=== PATIENT | female | born 1995 | race Caucasian/White ===

== ENCOUNTER 2016-11-04 12:23 | Emergency (ER) | payer MEDICAID, OTHER ==
[2016-11-04 12:43] VITALS: BP 131/64
--- NOTE | 2016-11-04 13:39 | UC ---
Upper Extremity HPI - HPI Summary HPI Summary: About 8 days ago developed large red oval on L upper ventral arm. Very itchy, also swollen and painful. Also noticed red itchy swollen area around 3 "bites" on R elbow with red streaking up the arm within a day or so. Saw PCP and was placed on bactrim for a week. Now pt has finished rx but symptoms persist, up scratching all night. No known stings or tick bites. Her PCP suggested she come here for lyme testing. - History of Current Complaint Chief Complaint: UCSkin Stated Complaint: SKIN ISSUE Time Seen by Provider: 11/04/16 12:58 Hx Obtained From: Patient Hx Last Menstrual Period: 10/05/16 ?: No Onset/Duration: Gradual Onset, Lasting Days Severity Initially: Moderate Severity Currently: Moderate Location Of Pain: Is Discrete @ Character: Dull Aggravating Factor(s): Nothing Alleviating Factor(s): Nothing Associated Signs And Symptoms: Positive: Swelling, Redness - Allergies/Home Medications Allergies/Adverse Reactions: Allergies Allergy/AdvReac Type Severity Reaction Status Date / Time Amoxicillin Allergy Unknown Verified 11/04/16 12:44 Reaction Details Azithromycin Allergy Unknown Verified 11/04/16 12:44 Reaction Details Bee Venom Allergy Swelling Verified 11/04/16 12:44 Penicillins [PCN] Allergy Unknown Verified 11/04/16 12:44 Reaction Details PMH/Surg Hx/FS Hx/Imm Hx Previously Healthy: Yes - Surgical History Surgical History: Yes Surgery Procedure, Year, and Place: 2013 CHOLECYSTECTOMY - Family History Known Family History: Positive: Other - no hx ulcers, colon cancer (distant realatives) - Social History Alcohol Use: Rare Substance Use Type: None Substance Use Comment - Amount & Last Used: HAS NOT NEEDED PERCOCET IN 3 DAYS Smoking Status (MU): Current Some Day Smoker Type: Cigarettes, Smokeless Tobacco Amount Used/How Often: 1 pack per week Length of Time of Smoking/Using Tobacco: 7 years Household Exposure Type: Cigarettes Cessation Counseling: Counseled 3+Min - 10 Min Review of Systems Constitutional: Negative Skin: Rash Eyes: Negative ENT: Negative Respiratory: Negative Cardiovascular: Negative Gastrointestinal: Negative Genitourinary: Negative Motor: Negative Neurovascular: Negative Musculoskeletal: Negative Neurological: Negative Psychological: Negative All Other Systems Reviewed And Are Negative: Yes Physical Exam Triage Information Reviewed: Yes Appearance: Well-Appearing, No Pain Distress, Obese Vital Signs: Initial Vital Signs Temp 98.8 F 11/04/16 12:39 Pulse 85 11/04/16 12:39 Resp 16 11/04/16 12:39 BP 131/64 11/04/16 12:39 Pulse Ox 100 11/04/16 12:39 Vital Signs Reviewed: Yes Eye Exam: Normal, Other - PERRL Eyes: Positive: Conjunctiva Clear ENT Exam: Normal ENT: Positive: Normal ENT inspection, Hearing grossly normal, Pharynx normal, TMs normal Dental Exam: Normal Neck exam: Normal Neck: Positive: Supple, Nontender, No Lymphadenopathy Respiratory Exam: Normal Respiratory: Positive: Chest non-tender, Lungs clear, Normal breath sounds, No respiratory distress, No accessory muscle use Cardiovascular Exam: Normal Cardiovascular: Positive: RRR, No Murmur Musculoskeletal Exam: Normal Musculoskeletal: Positive: Strength Intact, ROM Intact Neurological Exam: Normal Neurological: Positive: Alert Psychological Exam: Normal Skin Exam: Other - large swollen, hot itchy spots on bilat arms. R arm has streaking up the upper arm Upper Extremity Course/Dx - Differential Dx/Diagnosis Provider Diagnoses: large local reaction BUE. possible cellulitis RUE Discharge - Discharge Plan Condition: Stable Disposition: HOME Prescriptions: Cephalexin CAP* [Keflex 500 CAP*] 500 mg PO TID #21 cap DOXYcycline CAP(*) [DOXYcycline 100MG CAP(*)] 100 mg PO BID #14 cap predniSONE TAB* [Deltasone TAB*] 50 mg PO DAILY #5 tab Patient Education Materials: Insect Bite or Sting (ED), Cellulitis (ED) Referrals: Non Staff,Doctor [Primary Care Provider] - 3 Days Additional Instructions: As we discussed, I do not think your symptoms are typical of lyme, though I am testing you for this in case you have an odd reaction to the bacteria. The itchiness and appearance of your spots is most consistent with large reactions to insect bites or stings. The steroids may be all you need. However, with the streaking on your right arm, I am covering you with antibiotics to make sure you do not have a worsening infection. Please see your primary care provider later this week for a recheck before the weekend.
--- NOTE | 2016-11-05 19:54 | ED ---
Progress - Progress Note Progress Note: CALL PATIENT HIV 1 AND 2 NON REACTIVE. Course/Dx - Diagnoses Provider Diagnoses: Rash
== END 2016-11-04 13:50 | disposition home or self-care (01) ==
LOC: UCEAST 12:23
DX: L98.9 Disorder of the skin and subcutaneous tissue, unspecified (principal); Z11.4 Encounter for screening for human immunodeficiency virus [HIV]; Z72.0 Tobacco use
CPT/HCPCS: 36415; 86618; 86703; 99211; G0463

== ENCOUNTER 2016-12-27 14:22 | Emergency (ER) | payer MEDICAID ==
[2016-12-27] MEDS ORDERED: Ketorolac INJ* 60 MG/2 ML VIAL IM ONE (17:06)
[2016-12-27] MEDS ORDERED: Sulfamethox/Trimethoprim DS 800/160* TAB PO ONE (17:06)
[2016-12-27] MEDS ORDERED: traMADol TAB* 50 MG PO ONE (18:19)
[2016-12-27 18:42] VITALS: BP 120/69
--- NOTE | 2016-12-28 17:30 | ED ---
Fabiana Dickerson Edward, scribed for Jaden Johns MD on 12/27/16 at 1803 . Complex/Multi-Sys Presentation - HPI Summary HPI Summary: 21 y/o female presents to the ED c/o severe pain in her R side lower jaw for one week. The pain is not alleviated with anything and aggravated by touch. The pain radiates to behind the R ear and down the neck. The pt was dx with a dental abscess and given clindamycin but the pt is allergic to clindamycin. Associated sx: diaphoretic, chills. - History Of Current Complaint Chief Complaint: EDDentalPain Time Seen by Provider: 12/27/16 16:47 Hx Obtained From: Patient Onset/Duration: Lasting Days - 1 week Timing: Constant Severity Currently: Severe Location: Pain At: - R jaw Associated Signs And Symptoms: Positive: Diaphoresis, Other - dental pain, chills - Allergies/Home Medications Allergies/Adverse Reactions: Allergies Allergy/AdvReac Type Severity Reaction Status Date / Time Acetaminophen [From Tylenol] Allergy Severe Headache Verified 12/27/16 14:42 Hydrocodone Allergy Severe Hives Verified 12/27/16 14:42 Bee Venom Allergy Intermediate Swelling Verified 12/27/16 14:42 Clindamycin Allergy Intermediate Hives Verified 12/27/16 14:42 Amoxicillin Allergy Unknown Unknown Verified 12/27/16 14:42 Reaction Details Azithromycin Allergy Unknown Unknown Verified 12/27/16 14:42 Reaction Details Penicillins [PCN] Allergy Unknown Unknown Verified 12/27/16 14:42 Reaction Details PMH/Surg Hx/FS Hx/Imm Hx Previously Healthy: No Endocrine/Hematology History: Denies: Hx Diabetes, Hx Thyroid Disease Cardiovascular History: Denies: Hx Congestive Heart Failure, Hx Hypertension Respiratory History: Denies: Hx Asthma, Hx Chronic Obstructive Pulmonary Disease (COPD) GI History: Denies: Hx Ulcer History: Denies: Hx Dialysis, Hx Renal Disease - Surgical History Surgery Procedure, Year, and Place: 2013 CHOLECYSTECTOMY - Immunization History Date of Tetanus Vaccine: unknown Date of Influenza Vaccine: unknown Infectious Disease History: No Infectious Disease History: Denies: Hx Hepatitis, Hx Human Immunodeficiency Virus (HIV), History Other Infectious Disease, Traveled Outside the [place] in Last 30 Days - Family History Known Family History: Positive: Other - no hx ulcers, colon cancer (distant realatives) - Social History Alcohol Use: None Substance Use Type: Reports: None Substance Use Comment - Amount & Last Used: HAS NOT NEEDED PERCOCET IN 3 DAYS Smoking Status (MU): Light Every Day Tobacco Smoker Type: Cigarettes, Smokeless Tobacco Amount Used/How Often: 1 pack per week Length of Time of Smoking/Using Tobacco: 7 years Review of Systems Positive: Chills, Skin Diaphoresis Eyes: Negative Positive: Dental Pain Cardiovascular: Negative Respiratory: Negative Gastrointestinal: Negative Genitourinary: Negative Musculoskeletal: Negative Skin: Negative Neurological: Negative Psychological: Normal All Other Systems Reviewed And Are Negative: Yes Physical Exam - Summary Physical Exam Summary: VITAL SIGNS: Reviewed. GENERAL: ~Patient is a well-developed and nourished female who is lying comfortable in the stretcher. ~Patient is not in any acute respiratory distress. HEAD AND FACE: No signs of trauma. ~No ecchymosis, hematomas or skull depressions. No sinus tenderness. EYES: PERRLA, EOMI x 2, No injected conjunctiva, no nystagmus. EARS: Hearing grossly intact. Ear canals and tympanic membranes are within normal limits. MOUTH: Oropharynx within normal limits. Dental fracture in tooth no. 31, cavity in tooth no. 3 no signs of abscess. No swelling of the tongue or lips, and no trismus NECK: Supple, trachea is midline, no adenopathy, no JVD, no carotid bruit, no c- spine tenderness, neck with full ROM. CHEST: Symmetric, no tenderness at palpation LUNGS: Clear to auscultation bilaterally. No wheezing or crackles. CVS: Regular rate and rhythm, S1 and S2 present, no murmurs or gallops appreciated. ABDOMEN: Soft, non-tender. No signs of distention. No rebound no guarding, and no masses palpated. Bowel sounds are normal. EXTREMITIES: FROM in all major joints, no edema, no cyanosis or clubbing. NEURO: Alert and oriented x 3. No acute neurological deficits. Speech is normal and follows commands. SKIN: Dry and warm Triage Information Reviewed: Yes Vital Signs On Initial Exam: Initial Vitals Temp Pulse Resp BP Pulse Ox 98.7 F 83 16 136/76 99 12/27/16 14:33 12/27/16 14:33 12/27/16 14:33 12/27/16 14:33 12/27/16 14:33 Vital Signs Reviewed: Yes Diagnostics - Vital Signs Vital Signs Temp Pulse Resp BP Pulse Ox 12/27/16 14:33 98.7 F 83 16 136/76 99 - Laboratory Lab Statement: Any lab studies that have been ordered have been reviewed, and results considered in the medical decision making process. Complex Multi-Symp Course/Dx Assessment/Plan: 21 y/o female presents to the ED c/o severe pain in her R side lower jaw for one week. The pain is not alleviated with anything and aggravated by touch. The pain radiates to behind the R ear and down the neck. The pt was dx with a dental abscess and given clindamycin but the pt is allergic to clindamycin. Associated sx: diaphoretic, chills. In the ED course I did not notice any abscesses. The pt has a dental fracture in tooth no. 31, cavity in 3 but no signs of abscess. Pt was placed on clindamycin but is allergic. Therefore the pt will be given Bactrim since she is also allergic to penicillin. She will also be given naproxen and ultram for pain. The pt is highly recommended to f/u with a dentist. The pt is hemodynamically stable and A &Ox3. The patient has no swelling of the tongue or lips and no trismus. - Diagnoses Provider Diagnoses: Dental cavity, Pain, dental Discharge - Discharge Plan Condition: Stable Disposition: HOME Prescriptions: Naproxen TAB* [Naprosyn 250 mg TAB*] 500 mg PO Q8H PRN #20 tab PRN Reason: Pain Sulfamethox/Trimethoprim DS* [Bactrim DS 800/160 TAB*] 1 tab PO BID #20 tab traMADol TAB* [Ultram*] 25 mg PO Q6HR PRN #10 tab MDD 4 PRN Reason: Pain Patient Education Materials: Cavity Preventive (For the teeth or gums) Referrals: Oziel Bo MD [Primary Care Provider] - Additional Instructions: HIGHLY RECOMMEND YOU F/U WITH A DENTIST [facility] The documentation as recorded by the Fabiana cespedes Edward accurately reflects the service I personally performed and the decisions made by me, Jaden Johns MD.
== END 2016-12-27 18:41 | disposition home or self-care (01) ==
LOC: ED 14:22
DX: K02.9 Dental caries, unspecified (principal); K08.89 Other specified disorders of teeth and supporting structures
CPT/HCPCS: 96372; 99282; A9270-GY; J1885

== ENCOUNTER 2017-06-20 00:34 | Emergency (ER) | payer MEDICAID, OTHER ==
--- NOTE | 2017-06-20 02:38 | ED ---
Abdominal Pain/Female - HPI Summary HPI Summary: Patient here with right lower pain today. This is associated with hematuria, dysuria and urinary frequency. She denies fever, chills, nausea, vomiting, diarrhea, chest pain and is moving her bowels well. No vaginal discharge, irritation - last menstrual period first week of June. Patient denies risk of . NOTE: pt also reports she developed Rt arm pain and "heaviness" on the ambulance ride over. Denies numbness, tingling. Pain with lifting arm. No known injury to UE or neck. She also has Rt LE pain and weakness but this is chronic. Admits to h/o "passing out" a few months ago - has been worked up by PCP (ie. holter monitor, etc). No known cause. She has not had a syncopal episode in weeks. 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 Hx Last Menstrual Period: 10/05/16 Pain Intensity: 6 <Alesha Sánchez - Last Filed: 06/20/17 03:09> <Lm Grant - Last Filed: 06/20/17 04:44> - History of Current Complaint Chief Complaint: EDUrogenitalProblems Stated Complaint: BLOODY URINE Time Seen by Provider: 06/20/17 01:40 Allergies/Adverse Reactions: Allergies Allergy/AdvReac Type Severity Reaction Status Date / Time MS Hydrocodone [Hydrocodone] Allergy Severe Hives Verified 12/27/16 14:42 MS Bee Venom [Bee Venom] Allergy Intermediate Swelling Verified 12/27/16 14:42 MS Clindamycin [Clindamycin] Allergy Intermediate Hives Verified 12/27/16 14:42 MS Amoxicillin [Amoxicillin] Allergy Unknown Unknown Verified 12/27/16 14:42 Reaction Details MS Azithromycin Allergy Unknown Unknown Verified 12/27/16 14:42 [Azithromycin] Reaction Details MS Penicillins [PCN] Allergy Unknown Unknown Verified 12/27/16 14:42 Reaction Details PMH/Surg Hx/FS Hx/Imm Hx Previously Healthy: Yes Endocrine/Hematology History: Denies: Hx Anticoagulant Therapy, Hx Blood Disorders, Hx Diabetes, Hx Thyroid Disease Cardiovascular History: Denies: Hx Congestive Heart Failure, Hx Hypertension Respiratory History: Denies: Hx Asthma, Hx Chronic Obstructive Pulmonary Disease (COPD) GI History: Reports: Hx Gall Bladder Disease - status post cholecystectomy Denies: Hx Ulcer History: Denies: Hx Dialysis, Hx Kidney Infection, Hx Kidney Stones, Hx Renal Disease Musculoskeletal History: Reports: Other Musculoskeletal History - Rt LE pain, weakness - intermittent Denies: Hx Back Problems - Surgical History Surgery Procedure, Year, and Place: 2013 CHOLECYSTECTOMY - Immunization History Date of Tetanus Vaccine: unknown Date of Influenza Vaccine: unknown Infectious Disease History: No Infectious Disease History: Denies: Hx Hepatitis, Hx Human Immunodeficiency Virus (HIV), History Other Infectious Disease, Traveled Outside the [place] in Last 30 Days - Family History Known Family History: Positive: Other - no hx ulcers, colon cancer (distant realatives) - Social History Occupation: Unemployed Lives: With Family Alcohol Use: None Hx Substance Use: No Substance Use Type: Reports: None Hx Tobacco Use: Yes Smoking Status (MU): Light Every Day Tobacco Smoker Type: Cigarettes, Smokeless Tobacco Amount Used/How Often: 1 pack per week Length of Time of Smoking/Using Tobacco: 7 years <Alesha Sánchez - Last Filed: 06/20/17 03:09> Review of Systems Constitutional: Negative Negative: Fever, Chills, Fatigue Eyes: Negative ENT: Negative Cardiovascular: Negative Respiratory: Negative Positive: Abdominal Pain Positive: see HPI Positive: Myalgia - right shoulder muscles and down into her arm - sore; right leg is also "heavy" (chronic condition), Decreased ROM - Rt UE d/t pain Skin: Negative Neurological: Negative Negative: Headache, Paresthesia, Numbness, Syncope, Slurred Speech Psychological: Normal All Other Systems Reviewed And Are Negative: Yes <Alesha Sánchez - Last Filed: 06/20/17 03:09> Physical Exam Triage Information Reviewed: Yes Vital Signs On Initial Exam: Initial Vitals Temp Pulse Resp BP Pulse Ox 98.6 F 110 18 121/83 97 06/20/17 00:38 06/20/17 00:38 06/20/17 00:38 06/20/17 00:38 06/20/17 00:38 Vital Signs Reviewed: Yes Appearance: Positive: Well-Appearing, No Pain Distress, Obese Skin: Positive: Warm, Skin Color Reflects Adequate Perfusion, Dry - no erythema , no ecchymosis, no lesions over effected areas Head/Face: Positive: Normal Head/Face Inspection Eyes: Positive: Normal, EOMI, Conjunctiva Clear - anicteric sclera ENT: Positive: Normal ENT inspection, Hearing grossly normal, Pharynx normal - mucosa moist Neck: Positive: Supple Respiratory/Lung Sounds: Positive: Clear to Auscultation, Breath Sounds Present Cardiovascular: Positive: Normal, RRR, Pulses are Symmetrical in both Upper and Lower Extremities. Negative: Leg Edema Left, Leg Edema Right Abdomen Description: Positive: Soft, CVA Tenderness (R), Other: - RLQ TTP - no rebounding; equivocal Rovsing. Negative: CVA Tenderness (L), Distended, Guarding Musculoskeletal: Positive: Strength/ROM Intact, Pain @ - Rt trapezius w/ TTP - reproduces pain going down into Rt UE Neurological: Positive: Normal, Sensory/Motor Intact, Alert, Oriented to Person Place, Time, CN Intact II-III Psychiatric: Positive: Anxious - pleasant and cooperative but subtle anxiety <Alesha Sánchez - Last Filed: 06/20/17 03:09> Vital Signs On Initial Exam: Initial Vitals Temp Pulse Resp BP Pulse Ox 37.0 C 110 18 121/83 97 06/20/17 00:38 06/20/17 00:38 06/20/17 00:38 06/20/17 00:38 06/20/17 00:38 <Lm Grant - Last Filed: 06/20/17 04:44> Diagnostics - Vital Signs Vital Signs Temp Pulse Resp BP Pulse Ox 06/20/17 00:38 98.6 F 110 18 121/83 97 - Laboratory Result Diagrams: 06/20/17 02:42 Lab Statement: Any lab studies that have been ordered have been reviewed, and results considered in the medical decision making process. <Alesha Sánchez - Last Filed: 06/20/17 03:09> - Vital Signs Vital Signs Temp Pulse Resp BP Pulse Ox 06/20/17 00:38 37.0 C 110 18 121/83 97 - Laboratory Lab Results: Lab Results 06/20/17 06/20/17 06/20/17 Range/Units 02:42 02:42 02:42 WBC 9.9 (3.5-10.8) 10^3/ul RBC 4.68 (4.0-5.4) 10^6/ul Hgb 14.0 (12.0-16.0) g/dl Hct 40 (35-47) % MCV 86 (80-97) fL MCH 30 (27-31) pg MCHC 35 (31-36) g/dl RDW 13 (10.5-15) % Plt Count 221 (150-450) 10^3/ul MPV 8 (7.4-10.4) um3 Neut % (Auto) 65.3 (38-83) % Lymph % (Auto) 24.8 L (25-47) % Dukes % (Auto) 8.0 H (0-7) % Eos % (Auto) 1.6 (0-6) % Baso % (Auto) 0.3 (0-2) % Absolute Neuts (auto) 6.5 (1.5-7.7) 10^3/ul Absolute Lymphs (auto) 2.5 (1.0-4.8) 10^3/ul Absolute Monos (auto) 0.8 (0-0.8) 10^3/ul Absolute Eos (auto) 0.2 (0-0.6) 10^3/ul Absolute Basos (auto) 0 (0-0.2) 10^3/ul Absolute Nucleated RBC 0 10^3/ul Nucleated RBC % 0 Sodium 136 (133-145) mmol/L Potassium 3.6 (3.5-5.0) mmol/L Chloride 103 (101-111) mmol/L Carbon Dioxide 26 (22-32) mmol/L Anion Gap 7 (2-11) mmol/L BUN 10 (6-24) mg/dL Creatinine 0.69 (0.51-0.95) mg/dL Est GFR ( Amer) 136.8 (>60) Est GFR (Non-Af Amer) 106.4 (>60) BUN/Creatinine Ratio 14.5 (8-20) Glucose 99 (70-100) mg/dL Lactic Acid 0.5 (0.5-2.0) mmol/L Calcium 9.6 (8.6-10.3) mg/dL Magnesium 1.9 (1.9-2.7) mg/dL Total Bilirubin 0.40 (0.2-1.0) mg/dL AST 17 (13-39) U/L ALT 14 (7-52) U/L Alkaline Phosphatase 63 (34-104) U/L C-Reactive Protein 7.05 H (< 5.00) mg/L Total Protein 7.2 (6.4-8.9) g/dL Albumin 4.2 (3.2-5.2) g/dL Globulin 3.0 (2-4) g/dL Albumin/Globulin Ratio 1.4 (1-3) Lipase 24 (11.0-82.0) U/L Beta HCG, Quant < 0.60 mIU/mL Result Diagrams: 06/20/17 02:42 06/20/17 02:42 Lab Statement: Any lab studies that have been ordered have been reviewed, and results considered in the medical decision making process. <Lm Grant - Last Filed: 06/20/17 04:44> Re-Evaluation - Re-Evaluation First Eval Re-Evaluation Time: 04:40 Change: Improved - pt pain improevd with IM and po analgesia. Pt with ovarian cyst on CT; plan for f/u with ANALYTICAL ENGINEER for further evaluation and tx. <Lm Grant - Last Filed: 06/20/17 04:44> Abdominal Pain Fem Course/Dx - Course Course Of Treatment: Pt presents w/ hematuria. Associated sx of dysuria, frequency and Rt flank pain w/ RLQ pain. Subsequently, she reports Rt arm and leg pain, "heaviness" upon arriving (she notes leg sx's are chronic and come/go - arm sx are new). Exam is neg for facial droop, slurred speech and pronator drift however pt reports h/o syncope w/o known cause and smokes. Will order brain CT to asses for hemorrhage/ischemia however liklihood low. Will check CT ab/pelvic for urinary tract stone w/ sx as mentioned above. She does not request any medication for pain at this time. Labs and imaging pending. Signed out to Dr. Grant. <Alesha Sánchez - Last Filed: 06/20/17 03:09> <Lm Grant - Last Filed: 06/20/17 04:44> - Diagnoses Provider Diagnoses: Hematuria, Right upper limb pain, Ovarian cyst Discharge - Discharge Plan Discharge Disposition Comment: signed out <Alesha Sánchez - Last Filed: 06/20/17 03:09> <Lm Grant - Last Filed: 06/20/17 04:44> - Discharge Plan Condition: Stable Disposition: HOME Prescriptions: Ibuprofen TAB* [Motrin TAB* 800 MG] 800 mg PO Q6H PRN 5 Days #20 tab PRN Reason: Pain traMADol TAB* [Ultram*] 50 mg PO Q6HR PRN 3 Days #12 tab MDD 200 mg PRN Reason: Pain Patient Education Materials: Ovarian Cyst (ED) Referrals: Anupam MOURA,Oziel Pitt [Primary Care Provider] - 2 Days
[2017-06-20 02:53] LABS: ABS Basophils 0 10^3/ul (0-0.2); ABS Eosinophils 0.2 10^3/ul (0-0.6); ABS Lymphocytes 2.5 10^3/ul (1.0-4.8); ABS Monocytes 0.8 10^3/ul (0-0.8); ABS Neutrophils 6.5 10^3/ul (1.5-7.7); ABS Nucleated RBC 0 10^3/ul; Eosinophil % 1.6 % (0-6); Hematocrit 40 % (35-47); Lymphocyte % 24.8 % (25-47); Mean Corpuscular HGB Conc 35 g/dl (31-36); Mean Corpuscular Hemoglobin 30 pg (27-31); Mean Corpuscular Volume 86 fL (80-97); Mean Platelet Volume 8 um3 (7.4-10.4); Nucleated Red Blood Cells % 0; Platelet Count 221 10^3/ul (150-450); Red Blood Count 4.68 10^6/ul (4.0-5.4); Red Cell Distribution Width 13 % (10.5-15); White Blood Count 9.9 10^3/ul (3.5-10.8)
[2017-06-20 03:11] LABS: EGFR Non-African American 106.4 (>60)
[2017-06-20] MEDS ORDERED: NS 0.9% 1000 ML* 1,000 ML IV ONE (03:33)
[2017-06-20] MEDS ORDERED: Ketorolac INJ* 60 MG/2 ML VIAL IM ONE (04:11)
[2017-06-20] MEDS ORDERED: traMADol TAB* 50 MG PO ONE (04:12)
[2017-06-20 04:56] VITALS: BP 118/77
--- NOTE | 2017-06-20 08:56 | RAD ---
INDICATION: Weakness COMPARISON: None. TECHNIQUE: Contiguous axial sections of the brain were obtained from the skull base to the vertex without contrast. FINDINGS: The ventricles, cisterns and sulci are within normal limits. The smith-white matter differentiation is adequately maintained and there is no sulcal effacement. No significant focal abnormality or mass effect is present. There is no evidence for intracranial hemorrhage. No significant focal osseous abnormality is present. There is moderate mucosal thickening of the right greater than left ethmoid air cells. There is mild mucosal thickening of the right maxillary sinus and right sphenoid sinus. The mastoid air cells are well aerated bilaterally. IMPRESSION: Mild paranasal sinus mucosal disease in this otherwise normal CT of the brain.
--- NOTE | 2017-06-20 09:25 | RAD ---
CLINICAL HISTORY: Right flank and abdominal pelvic pain, hematuria and dysuria. COMPARISON: CT abdomen pelvis dated December 29, 2015 TECHNIQUE: Noncontrast CT examination of the abdomen and pelvis from the lung bases through the initial tuberosities. FINDINGS: VISUALIZED LUNG BASES: The visualized lung bases are grossly clear. There is no pleural effusion. ABDOMEN AND PELVIS: Evaluation of the solid organs and vasculature is limited without intravenous contrast. The liver, pancreas and adrenal glands are grossly normal in appearance. The gallbladder is surgically absent with clips in the gallbladder fossa. There are multiple calcified granuloma in the mildly enlarged spleen measuring 15 cm in greatest cephalocaudal dimension. Similar the previous CT examination there is asymmetry of the kidneys with the right kidney measuring 8.4 cm in length and the left kidney measuring 11.9 cm in length. Otherwise the kidneys are normal in appearance without focal mass, calcification or signs of hydronephrosis. The small and large bowel are not distended. The diminutive appendix is identified in the right lower quadrant without signs of appendicitis (axial image 115). There is no gross retroperitoneal or mesenteric lymphadenopathy. The uterus is normal in appearance according to CT criteria. There are ill-defined low-attenuation structures in the bilateral adnexa most consistent with ovarian follicles and a woman of this age. There is a moderate amount of right-sided fluid in the cul-de-sac, not necessarily pathologic finding in a woman of reproductive age. The abdominal aorta and iliac arteries are normal in course and diameter. There are no sinister bone lesions. IMPRESSION: 1. Stable asymmetry in the kidneys as described above without CT signs of renal calculi or obstructive uropathy. 2. Splenomegaly is similar in appearance to the December 29, 2015 CT examination. 3. There is a moderate amount of free fluid in the right cul-de-sac with low-attenuation foci at the bilateral adnexa expected to be benign ovarian follicles in a woman of this age. If clinically warranted superior characterization of the pelvis can be obtained with pelvic ultrasound.
== END 2017-06-20 04:55 | disposition home or self-care (01) ==
LOC: ED 00:34
DX: R31.9 Hematuria, unspecified (principal); N83.209 Unspecified ovarian cyst, unspecified side; Z32.02 Encounter for pregnancy test, result negative; M79.621 Pain in right upper arm; F17.210 Nicotine dependence, cigarettes, uncomplicated; F17.290 Nicotine dependence, other tobacco product, uncomplicated; Z88.3 Allergy status to other anti-infective agents; Z88.5 Allergy status to narcotic agent; Z88.0 Allergy status to penicillin
CPT/HCPCS: 36415; 70450; 74176; 80053; 83605; 83690; 83735; 84702; 85025; 86140; 96372; 99284; A9270-GY; J1885

== ENCOUNTER 2017-11-09 15:40 | Emergency (ER) | payer OTHER ==
--- NOTE | 2017-11-09 16:21 | ED ---
Abdominal Pain/Female - HPI Summary HPI Summary: C/O diffuse abdo pain worse at umbilicus and including RLQ and right flank x 4 days with cold sweats, nausea and diarrhea and constipation. Pain intermittent, worse with eating, not affected by movement. Denies fever, urinary sx, vaginal sx, cough, sore throat, sob, cp. Ab/pel surgical hx = eiln. Hx of ovarian cysts. No hx of kidney stones. LMP 10/12. Hx of CT ab/pel 06/2017 for right flank/ RLQ pain POS only for possible ovarian follicles. - History of Current Complaint Chief Complaint: EDFlankPain Stated Complaint: ABD PAIN Time Seen by Provider: 11/09/17 15:57 Hx Obtained From: Patient Hx Last Menstrual Period: 10/05/16 Onset/Duration: Gradual Onset Timing: Intermittent Episode Lasting Severity Initially: Moderate Severity Currently: Moderate Pain Intensity: 6 Pain Scale Used: 0-10 Numeric Location: Diffuse, Discrete At: RLQ, Umbilical Radiates: Yes Radiates to: Back, Flank Character: Sharp, Cramping Aggravating Factor(s): Food Alleviating Factor(s): Nothing Associated Signs and Symptoms: Positive: Back Pain, Nausea Allergies/Adverse Reactions: Allergies Allergy/AdvReac Type Severity Reaction Status Date / Time acetaminophen Allergy Nausea And Verified 11/09/17 16:31 Vomiting amoxicillin Allergy Hives Verified 11/09/17 16:31 azithromycin Allergy Hives Verified 11/09/17 16:31 bee venom protein (honey bee) Allergy Swelling Verified 11/09/17 16:31 clindamycin Allergy Hives Verified 11/09/17 16:31 Penicillins Allergy Swelling Verified 11/09/17 16:31 Of Face,Lips,& Throat PMH/Surg Hx/FS Hx/Imm Hx Endocrine/Hematology History: Denies: Hx Anticoagulant Therapy, Hx Blood Disorders, Hx Diabetes, Hx Thyroid Disease Cardiovascular History: Denies: Hx Congestive Heart Failure, Hx Hypertension Respiratory History: Denies: Hx Asthma, Hx Chronic Obstructive Pulmonary Disease (COPD) GI History: Reports: Hx Gall Bladder Disease - status post cholecystectomy Denies: Hx Ulcer History: Denies: Hx Dialysis, Hx Kidney Infection, Hx Kidney Stones, Hx Renal Disease Musculoskeletal History: Reports: Other Musculoskeletal History - Rt LE pain, weakness - intermittent Denies: Hx Back Problems - Surgical History Surgery Procedure, Year, and Place: 2013 CHOLECYSTECTOMY - Immunization History Date of Tetanus Vaccine: unknown Date of Influenza Vaccine: unknown Infectious Disease History: No Infectious Disease History: Denies: Hx Hepatitis, Hx Human Immunodeficiency Virus (HIV), History Other Infectious Disease, Traveled Outside the [place] in Last 30 Days - Family History Known Family History: Positive: Other - no hx ulcers, colon cancer (distant realatives) - Social History Alcohol Use: None Hx Substance Use: No Substance Use Type: Reports: None Substance Use Comment - Amount & Last Used: HAS NOT NEEDED PERCOCET IN 3 DAYS Hx Tobacco Use: Yes Smoking Status (MU): Light Every Day Tobacco Smoker Type: Cigarettes, Smokeless Tobacco Amount Used/How Often: 1 pack per week Length of Time of Smoking/Using Tobacco: 7 years Review of Systems Constitutional: Negative Eyes: Negative ENT: Negative Cardiovascular: Negative Respiratory: Negative Positive: Abdominal Pain, Nausea Genitourinary: Negative Musculoskeletal: Negative Skin: Negative Neurological: Negative Psychological: Normal All Other Systems Reviewed And Are Negative: Yes Physical Exam - Summary Physical Exam Summary: most tender in umbilical area, but some tenderness in RLQ, bilat mild CVA tenderness. Pt very active lifting her baby up and down in and out of the bed while claiming intense pain. No outward indication of pain while doing so. Jumps whenever touched in abdomen, but abdomen is soft. Does not jump when palpated while she is talking about something else and seemingly distracted. Triage Information Reviewed: Yes Vital Signs On Initial Exam: Initial Vitals Temp Pulse Resp BP Pulse Ox 97.5 F 90 16 130/70 98 11/09/17 15:42 11/09/17 15:42 11/09/17 15:42 11/09/17 15:42 11/09/17 15:42 Vital Signs Reviewed: Yes Appearance: Positive: Well-Appearing Skin: Positive: Warm Head/Face: Positive: Normal Head/Face Inspection Eyes: Positive: Normal Neck: Positive: Supple Respiratory/Lung Sounds: Positive: Clear to Auscultation Cardiovascular: Positive: Normal Abdomen Description: Positive: Other: Musculoskeletal: Positive: Normal Neurological: Positive: Normal Psychiatric: Positive: Normal AVPU Assessment: Alert - Suzy Coma Scale Best Eye Response: 4 - Spontaneous Best Motor Response: 6 - Obeys Commands Best Verbal Response: 5 - Oriented Coma Scale Total: 15 Diagnostics - Vital Signs Vital Signs Temp Pulse Resp BP Pulse Ox 11/09/17 15:42 97.5 F 90 16 130/70 98 - Laboratory Result Diagrams: 11/09/17 16:29 11/09/17 16:30 Lab Statement: Any lab studies that have been ordered have been reviewed, and results considered in the medical decision making process. - Radiology kub Xray Interpretation: No Acute Changes Radiology Interpretation Completed By: Radiologist - Ultrasound No standard instances Ultrasound Interpretation: Positive (See Comments) - Transvaginal ultrasound: 2.4 cm in maximum dimension hemorrhagic cyst of the right ovary. Physiologic small volume of the free fluid in the cul-de-sac. Abdominal Pain Fem Course/Dx - Course Course Of Treatment: C/O diffuse abdo pain worse at umbilicus and including RLQ and right flank x 4 days with cold sweats, nausea and diarrhea and constipation. Pain intermittent, worse with eating, not affected by movement. Denies fever, urinary sx, vaginal sx, cough, sore throat, sob, cp. Ab/pel surgical hx = elin. Hx of ovarian cysts. No hx of kidney stones. LMP 10/12. Hx of CT ab/pel 06/2017 for right flank/RLQ pain POS only for possible ovarian follicles. PE: most tender in umbilical area, but some tenderness in RLQ, bilat mild CVA tenderness. Pt very active lifting her baby up and down in and out of the bed while claiming intense pain. No outward indication of pain while doing so. Jumps whenever touched in abdomen, but abdomen is soft. Does not jump when palpated while she is talking about something else and seemingly distracted. Vital signs within normal limits. Ultrasound TV positive for right hemorrhagic cyst. Ibuprofen for pain. Follow up with DENTAL SERVICE CHIEF - Diagnoses Provider Diagnoses: Hemorrhagic cyst of right ovary Discharge - Sign-Out/Discharge Documenting (check all that apply): Patient Departure - Discharge Plan Condition: Stable Disposition: HOME Patient Education Materials: Ruptured Ovarian Cyst (ED) Referrals: Anupam MOURA,Oziel Pitt [Primary Care Provider] - Murray Parks MD [Medical Doctor] - Additional Instructions: Ibuprofen for pain. Follow-up with DENTAL SERVICE CHIEF Dr Parks. Return to the ED for any new or worsening symptoms - Billing Disposition and Condition Condition: STABLE Disposition: Home
[2017-11-09] MEDS ORDERED: NS 0.9% 1000 ML* 1,000 ML IV ONE (16:24)
[2017-11-09 16:42] LABS: ABS Basophils 0 10^3/ul (0-0.2); ABS Eosinophils 0.1 10^3/ul (0-0.6); ABS Lymphocytes 2.2 10^3/ul (1.0-4.8); ABS Monocytes 0.6 10^3/ul (0-0.8); ABS Neutrophils 6.5 10^3/ul (1.5-7.7); ABS Nucleated RBC 0 10^3/ul; Eosinophil % 0.9 % (0-6); Hematocrit 37 % (35-47); Lymphocyte % 23.6 % (25-47); Mean Corpuscular HGB Conc 35 g/dl (31-36); Mean Corpuscular Hemoglobin 30 pg (27-31); Mean Corpuscular Volume 86 fL (80-97); Mean Platelet Volume 8.5 um3 (7.4-10.4); Nucleated Red Blood Cells % 0.1; Platelet Count 204 10^3/ul (150-450); Red Blood Count 4.33 10^6/ul (4.00-5.40); Red Cell Distribution Width 13 % (10.5-15); White Blood Count 9.4 10^3/ul (3.5-10.8)
--- NOTE | 2017-11-09 16:45 | RAD ---
INDICATION: Diffuse abdominal pain COMPARISON: None TECHNIQUE: Erect and supine views of the abdomen are submitted. FINDINGS: Bones: There are no acute bony findings. Soft tissues: The soft tissues appear normal. The psoas margins are sharp. Bowel gas pattern: Normal Calcifications: There are no abnormal calcifications. Other: None IMPRESSION: No acute diagnostic findings
[2017-11-09 17:19] LABS: EGFR Non-African American 79.6 (>60)
--- NOTE | 2017-11-09 17:56 | RAD ---
Indication: RIGHT lower quadrant to umbilical and LEFT lower quadrant pain. Comparison: June 20, 2017 CT. Technique: Transvaginal pelvic ultrasound. Report: 8.5 x 3.8 x 5.5 cm retroverted uterus with suggestion of potential arcuate morphology. Upper normal 12.8 mm endometrium. Physiologic range small volume of free fluid in the cul-de-sac. 4.4 x 3.4 x 3.1 cm RIGHT ovary with documented vascular flow is remarkable for a 2.3 x 1.7 x 2.4 cm largely anechoic cyst with a segmental region of reticulated low level internal echoes devoid of intrinsic vascularity most consistent with a hemorrhagic cyst. 3.9 x 1.7 x 1.9 cm LEFT ovary with documented vascular flow is unremarkable. No extra ovarian adnexal region lesions evident. IMPRESSION: #. 2.4 cm maximum dimension hemorrhagic cyst of the RIGHT ovary. #. Physiologic small volume of free fluid in the cul-de-sac.
[2017-11-09] MEDS ORDERED: Ibuprofen TAB* 600 MG PO ONE (18:29)
[2017-11-09 18:42] VITALS: BP 108/58
== END 2017-11-09 18:46 | disposition home or self-care (01) ==
LOC: ED 15:40
DX: N83.201 Unspecified ovarian cyst, right side (principal); F17.210 Nicotine dependence, cigarettes, uncomplicated; Z87.42 Personal history of other diseases of the female genital tract; Z90.49 Acquired absence of other specified parts of digestive tract; Z88.3 Allergy status to other anti-infective agents; Z88.6 Allergy status to analgesic agent; Z88.0 Allergy status to penicillin
CPT/HCPCS: 36415; 74018; 76830; 80053; 83690; 84702; 85025; 86140; 86703; 96360; 99283; A9270-GY

== ENCOUNTER 2019-01-12 14:47 | Emergency (ER) | payer OTHER ==
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
[2019-01-12] MEDS ORDERED: Ketorolac *IM* INJ* 60 MG/2 ML VIAL IM ONE (15:50)
[2019-01-12 18:11] VITALS: BP 121/77
== END 2019-01-12 18:09 | disposition home or self-care (01) ==
LOC: ED 14:47
DX: M79.672 Pain in left foot (principal); Z87.891 Personal history of nicotine dependence
CPT/HCPCS: 96372; 99282; J1885

== ENCOUNTER 2019-06-16 09:59 | Day surgery (SDC) | payer OTHER ==
[~2019-06-16 09:59] MED LIST: Buffered Lidocaine 1% SYRIN* 1 ML/SYRINGE INTRADERM ONE; Lactated Ringers 1000 ML Bag* 1,000 ML IV SCH; Vancomycin(*) 1,750 MG in NS 0.9% 500 ML* 500 ML IVPB ONE
[2019-06-16] MEDS ORDERED: Buffered Lidocaine 1% SYRIN* 1 ML/SYRINGE INTRADERM ONE (10:41)
[2019-06-16] MEDS ORDERED: fentaNYL* 50 MCG/ML 2 ML VIAL (100 MCG VIAL) ONE ×2 (10:55→12:25)
[2019-06-16] MEDS ORDERED: Midazolam* 1 MG/ML 2 ML VIAL (2 MG) ONE (10:55)
[2019-06-16] MEDS ORDERED: HYDROmorphone INJ1* 1 MG/ML SYRINGE IV PRN (11:28)
[2019-06-16] MEDS ORDERED: Naloxone* 0.4 MG/ML 1 ML VIAL IV PRN (11:28)
[2019-06-16] MEDS ORDERED: Rocuronium* 10 MG/ML VIAL ONE (12:05)
[2019-06-16] MEDS ORDERED: Ondansetron INJ* 2 MG/ML VIAL ONE (12:23)
[2019-06-16] MEDS ORDERED: ROPIVACAINE 5 MG/ML 30 ML BTL (0.5%) ONE (12:23)
[2019-06-16] MEDS ORDERED: Dexamethasone IV* 4 MG/ML 1 ML (4 MG) ONE (12:23)
[2019-06-16] MEDS ORDERED: Propofol* 10 MG/ML 20 ML BTL ONE (12:23)
[2019-06-16] MEDS ORDERED: Lidocaine 2% PF * 5 ML VIAL ONE (12:23)
[2019-06-16] MEDS ORDERED: Phenylephrine 40 MCG/ML SYRINGE ONE (12:45)
[2019-06-16] MEDS ORDERED: Ketorolac INJ* 30 MG/ML 1 ML VIAL ONE (13:32)
[2019-06-16] MEDS ORDERED: Sugammadex * 200 MG/2 ML VIAL IV PUSH ONE (13:33)
[2019-06-16] MEDS ORDERED: Haloperidol INJ IV/IM* 5 MG/ML AMP ONE (14:11)
[2019-06-16] MEDS ORDERED: HYDROmorphone INJ1* 1 MG/ML SYRINGE ONE (14:22)
--- NOTE | 2019-06-16 14:34 | OP ---
Operative Report - Blank - Operative Report Date of Operation: 06/16/19 Note: PATIENT: Елена Orantes DATE OF : 1995 DATE OF SURGERY: 06/16/2019 SURGEON: Tano Hu MD GROUP EXERCISE MANAGER: ASHLIE Landis, whos assistance was necessary for positioning, retraction, help with instrumentation, and closure. ANESTHESIOLOGIST: Dr. Roberson PREOPERATIVE DIAGNOSIS: 1. Left Achilles tendinopathy, calcaneal exostosis, and gastrocnemius contracture. 2. Left painful os trigonum. 3. Left peroneal tendon instability with peroneal tenosynovitis vs tear. POSTOPERATIVE DIAGNOSIS: 1. Left Achilles tendinopathy, calcaneal exostosis, and gastrocnemius contracture. 2. Left painful os trigonum. 3. Left peroneal tendon instability with peroneal tenosynovitis and peroneus longus tear. OPERATION: 1. Left Achilles tendon debridement and secondary repair 2. Left calcaneus ostectomy 3. Left gastrocnemius recession (Gregory procedure) 4. Excision of left painful os trigonum 5. Left peroneal tendon exploration with synovectomy of peroneal tendon sheath and debridement of peroneus longus tendon tear. 6. Left peroneal tendon stabilization procedure with fibular groove deepening osteotomy. ANESTHESIA: GETA + block IMPLANTS: Ar[employer]rex Speedbridge TOURNIQUET TIME: Approximately 90 minutes with a well-padded thigh tourniquet at 275mmHg SPECIMENS: os trigonum ESTIMATED BLOOD LOSS: minimal COMPLICATIONS: none STATUS: Stable from the operating room to the recovery room and then home. INDICATIONS FOR PROCEDURE: Елена has had persistent pain after an injury. She has also developed peroneal instability. Both operative and non operative treatment alternatives were reviewed. Further, the nature and risks of surgery were reviewed in careful detail in the office as well as in the preoperative holding area. Our discussions regarding the risks of surgery included, but were not limited to, infection, wound problems, nerve injury, neuroma, RSD, persistent symptoms, blood clot, rupture or failure to heal, failure of the surgery, and even the remote chance of catastrophic complication. DESCRIPTION OF PROCEDURE: The patient was seen in the preoperative holding unit and informed written consent was obtained. The appropriate extremity was marked. The patient was then brought to the operating room and carefully positioned on the operating room table in the prone position. Anesthesia was induced. All bony prominences were padded with great care. A well-padded thigh tourniquet was placed. A chlorhexidine based pre-scrub was performed followed by a chloraprep prep and drape in standard sterile fashion. A surgical safety pause was then conducted in which we confirmed the appropriate patient, extremity, planned procedure, availability of equipment, indication and administration of prophylactic antibiotics, and DVT prophylaxis in the form of a compression boot on the non- surgical extremity. Exsanguination of the extremity was performed and the tourniquet was inflated. I began by utilizing a longitudinal incision overlying the posteromedial of the Achilles. I then carefully dissected down to the tendinous layer, maintaining full-thickness flaps. I exposed the Achilles tendon and removed it from the posterior aspect of the calcaneus. There was some degeneration of the tendon, which was sharply excised with a 15 blade scalpel. There was a split longitudinal tear of the tendon which was repaired with 0 Vicryl suture. I then exposed the calcaneal exostoses as well as the posterior-superior calcaneal tuberosity, which was prominent. I then utilized a small oscillating saw to excise the exostosis and prominent aspect of the calcaneal tuberosity, thus performing a saucerization of the calcaneus. I made sure all edges were smooth with a rasp and [place]. I then dissected anteriorly to the back of the ankle and subtalar joints. The FHL tendon was carefully dissected. The os trigonum was exposed. It was grossly loose. I used a small osteotome and knife to excise the os trigonum. This was sent to pathology. There was significant tension on the Achilles tendon after debridement when I reapproximated it to the calcaneus so I decided to move forward with a gastrocnemius recession. I made an approximately 3-cm incision at the posteromedial calf. I carried the dissection through the soft tissue and divided the crural fascia longitudinally. I then exposed the fascia of the gastrocnemius muscle. Great care was taken to protect the sural nerve throughout this procedure. I cleared all adhesions from the posterior aspect of the gastrocnemius fascia and then transected this in its entirety from medially to laterally. I then identified the plantaris tendon, which was also tight medially. This was transected. I then again confirmed that the sural nerve was in continuity. I then used an Ar[employer]rex speedbridge to perform a double row repair of the Achilles insertion on to the freshly osteotomized surface of the posterior calcaneus. This provided excellent fixation and compression of the insertional Achilles. The distal wound was then copiously irrigated and meticulously closed in layers utilizing 3-0 Monocryl for the subdermal layer, and 3-0 nylon for the skin. The proximal wound was was irrigated and closed in layers using 3-0 Monocryl and skin matthew. I then utilized an incision overlying the peroneal tendons laterally. I carried the dissection down through the soft tissue to the level of the periosteum and superior peroneal retinaculum (SPR) with care taken to protect the sural nerve, which was not visualized during the procedure. I carefully incised the SPR off of the posterior fibula to expose the peroneal tendons. Dissection of the tendons was carried distally. There was a complex, large tear of the peroneus longus tendon. There is extensive scarring of the tendon to the surrounding sheath. I used tenotomy scissors to free up the tendon. The tear was not repairable, so the frayed and torn tendon was excised with the tenotomy scissors. This left about 80% of the tendon intact. There was a large amount of inflamed tenosynovium within the tendon sheath. An extensive synovectomy was performed. Additionally, there was a low-lying peroneus brevis muscle belly which was debrided and excised. Otherwise, the peroneus brevis tendon was in good condition. At this point, I carefully inspected the peroneal groove at the posterior aspect of the fibula. This was an abnormally shallow groove and I therefore elected to perform a groove deepening osteotomy procedure. I utilized a small sagittal saw to create a longitudinal osteotomy in the fibula at the margin of the insertion of the SPR. I then utilized a bone tamp and a mallet to impact this area, deepening the groove. I took care to ensure that there were no sharp bony prominences in this area. At this point I carefully planned out the repair of the superior peroneal retinaculum. I then reduced the tendons and they sat nicely in the deepened retro-fibular groove. The wound was copiously irrigated. I repaired the SPR utilizing #1 Vicryl suture in a transosseous horizontal mattress suture pattern. I utilized multiple sutures for this repair, appropriately tensioning the SPR. I was able to pass a [place] under the repaired SPR without difficulty after the repair. We then irrigated the wound copiously again. The wound was closed in a layered fashion utilizing 3-0 Monocryl and 3-0 nylon. A sterile dressing was then applied followed by a splint with the ankle in resting equinus position. The patient was then awakened from anesthesia and transferred to the recovery room in stable condition. There were no complications. All needle and sponge counts were correct at the end of the case. ATTESTATION: I attest I was present and scrubbed and performed the critical portions of the procedure myself. POSTOPERATIVE PLAN: The patient will remain [id number] for an anticipated duration of 6 weeks and follow up in two weeks for likely suture removal and Steri-Strip application and transition to a short-leg cast. We will use aspirin for DVT prophylaxis.
[2019-06-16 16:55] VITALS: BP 105/54
== END 2019-06-16 17:00 | disposition home or self-care (01) ==
LOC: OR 09:59
PROVIDERS: ATTEND Orthopaedic Surgery
DX: M76.62 Achilles tendinitis, left leg (principal); M25.775 Osteophyte, left foot; M67.02 Short Achilles tendon (acquired), left ankle; M25.372 Other instability, left ankle; M76.72 Peroneal tendinitis, left leg; M79.662 Pain in left lower leg; G89.29 Other chronic pain; F41.9 Anxiety disorder, unspecified; Z88.1 Allergy status to other antibiotic agents; Z88.5 Allergy status to narcotic agent; Z88.0 Allergy status to penicillin; G89.18 Other acute postprocedural pain
CPT/HCPCS: 76000; 81025; 88304; 88311; C1713; J1100; J1170; J1630; J1885; J2250; J2405; J2704; J2795; J3010; J3370